=== PATIENT | male | born 1985 | race American Indian/Alaskan Native ===

== ENCOUNTER 2022-02-08 13:30 | Emergency (ER) | payer MEDICARE ==
[~2022-02-08] VITALS: Ht 177.8 cm; Wt 95.3 kg
[2022-02-08 14:21] LABS: BASOPHILS % 0.1 % (0.0-1.0); HEMATOCRIT 46.4 % (38.2-49.6); HEMOGLOBIN 15.8 g/dL (14.0-18.0); MEAN CORPUSCULAR HEMOGLOBIN 30.1 pg (28-32); MEAN CORPUSCULAR HGB CONC 34.1 g/dL (31-35); MEAN CORPUSCULAR VOLUME 88.4 fL (81-99); MONOCYTES # (AUTO) 0.6 (0.2-0.8); MONOCYTES % 7.5 % (4.4-11.3); NEUTROPHILS # (AUTO) 4.9 (2.1-6.9); NEUTROPHILS % 64.9 % (38.7-80.0); PLATELET COUNT 227 x10e3/uL (140-360); RED BLOOD COUNT 5.25 x10e6/uL (4.3-5.7); RED CELL DISTRIBUTION WIDTH 12.1 % (11.7-14.4)
[2022-02-08 14:28] LABS: INR 0.87; PROTHROMBIN TIME 12.7 seconds (11.9-14.5)
[2022-02-08 14:29] LABS: PARTIAL THROMBOPLASTIN TIME 28.4 seconds (23.8-35.5)
[2022-02-08 14:36] LABS: ALBUMIN 4.6 g/dL (3.5-5.0); ALBUMIN/GLOBULIN RATIO 1.5 (0.8-2.0); ANION GAP 12.9 mmol/L (8-16); CALCIUM 9.6 mg/dL (8.4-10.2); CREATININE, SERUM 0.87 mg/dL (0.72-1.25); MAGNESIUM 1.9 MG/DL (1.3-2.1); POTASSIUM 3.9 mmol/L (3.5-5.1)
[2022-02-08 14:42] LABS: CREATINE KINASE MB 1.7 ng/mL (0-5.0)
== END 2022-02-08 16:11 | disposition home or self-care (01) ==
LOC: ER 13:55
DX: R07.89 Other chest pain (principal); B34.9 Viral infection, unspecified; I10 Essential (primary) hypertension; Z88.2 Allergy status to sulfonamides; Z88.8 Allergy status to other drugs, medicaments and biological substances; Z20.822 Contact with and (suspected) exposure to COVID-19
CPT/HCPCS: 36415; 71045; 80053; 82550; 82553; 83735; 84484; 85025; 85610; 85730; 93005; 99283; U0002